=== PATIENT | male | born 1985 | race Caucasian/White ===

== ENCOUNTER 2018-02-26 02:52 | Emergency (ER) | payer OTHER ==
[~2018-02-26] VITALS: Ht 170.2 cm; Wt 106.6 kg
[~2018-02-26 02:52] MED LIST: AMOXICILLIN500 M2 PO; HYDROCHLOROTHIA50 MG PO; MOTRIN800 MG PO; TAMIFLU75 M1 PO
[2018-02-26 02:59] VITALS: BP 162/100
--- NOTE | 2018-02-26 03:30 | ED UPPER/LOWER EXTREMITY COMPL ---
History of Present Illness General Chief Complaint: Upper Extremity Problem Stated Complaint: WOKE UP WITH NUMBNESS AND PAIN IN RIGHT ARM Source: patient Exam Limitations: no limitations Vital Signs & Intake/Output Vital Signs & Intake/Output Vital Signs Date Time Temp Pulse Resp B/P B/P Pulse O2 O2 Flow FiO2 Mean Ox Delivery Rate 02/26 0259 96.5 62 16 162/100 98 Room Air Allergies Coded Allergies: NO KNOWN ALLERGIES (02/28/11) Reconcile Medications No Known Home Medications Triage Note: 32YO MALE TO TRIAGE W/CO AWAKING TONITE W/PAIN PRESENT FROM R SIDE OF NECK TRAVELING DOWN R ARM. ALSO CO SOME NUMBNESS OF FINGERS. TOOK MOTRIN 2H AGO Triage Nurses Notes Reviewed? yes HPI: Patient presents for evaluation of severe pain numbness and tingling of the right upper extremity that began our to arrival. Patient states he was well when he fell asleep while watching a movie on the couch at home. He feels he may have fallen asleep on his arm. He states he is now having constant pain from the right side of the neck through the shoulder and upper arm the gets worse with movement and with hanging his arm down. He denies any recent injury. He denies any prior episodes. Past History Travel History Traveled to [place] past 21 day No Medical History Any Pertinent Medical History? 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 No Review of Systems Review of Systems Constitutional: Reports: no symptoms. EENTM: Reports: no symptoms. Respiratory: Reports: no symptoms. Cardiovascular: Reports: no symptoms. Gastrointestinal/Abdominal: Reports: no symptoms. Genitourinary: Reports: no symptoms. Musculoskeletal: Reports: see HPI. Skin: Reports: no symptoms. Neurological/Psychological: Reports: no symptoms. Hematologic/Endocrine: Reports: no symptoms. Immunological: Reports: no symptoms. All Other Systems: Reviewed and Negative Physical Exam Physical Exam General Appearance: SEE BELOW Comments: Gen.: Well-nourished, well-developed, no acute respiratory distress. Head: Normocephalic, atraumatic. Eyes: Normal inspection bilaterally Ears: Normal inspection bilaterally Nose: Normal inspection Throat/mouth : Moist mucosa Neck: Supple, full range of motion, no goiter Heart: Regular rate and rhythm Lungs: Quiet respirations Back: Normal range of motion Extremities: Right upper extremity is neurovascularly intact with normal deep tendon reflexes, sensation strength and distal pulses. No traumatic lesions noted. Neurologic: Cranial nerves grossly intact, speech is clear Skin: warm and dry Psychiatric: Calm, cooperative, no apparent delusions or hallucinations Progress Differential Diagnosis: arterial insufficiency, dislocation, fracture, sprain, NEURAPRAXIA Plan of Care: Orders Procedure Date/time Status Durable Medical Equipment 02/26 0333 Active Departure Departure Disposition: HOME OR SELF CARE Condition: Stable Clinical Impression Primary Impression: Neuropraxia of right upper extremity Qualifiers: Encounter type: initial encounter Qualified Code: S44.91XA - Injury of unspecified nerve at shoulder and upper arm level, right arm, initial encounter Secondary Impressions: Neck muscle strain Qualifiers: Encounter type: initial encounter Qualified Code: S16.1XXA - Strain of muscle, fascia and tendon at neck level, initial encounter Referrals: Lucero Gamboa DO (PCP/Family) Additional Instructions: Ketorolac as prescribed for pain. Activity as tolerated. Arm sling if beneficial. Follow-up with Dr. Peck (neurologist) or your primary care physician for reevaluation over the next 48-72 hours. Return immediately if any concerns or sudden worsening. Thank you for choosing the [facility] Emergency Department for your care. It was a pleasure to serve you today. Orlando Grimes M.D. [facility] Departure Forms: Customer Survey General Discharge Information Prescriptions: Current Visit Scripts Ketorolac Tromethamine 1 TAB PO Q6P PRN ARM PAIN #16 TAB pATIENT RECEIVED im KETOROLAC IN THE EMERGENCY DEPARTMENT
[2018-02-26] MEDS ORDERED: KETOROLAC TROME10 M1 PO (04:14)
[2018-02-26] MEDS ORDERED: NORCO 5-325 TA1 EACH PO (11:07)
[2018-02-26] MEDS ORDERED: CYCLOBENZAPRINE10 M1 PO (11:07)
[2018-02-26] MEDS ORDERED: MEDROL4 M2 PO (11:07)
== END 2018-02-26 04:27 ==
LOC: ERH 02:52
DX: S44.91XA Injury of unspecified nerve at shoulder and upper arm level, right arm, initial encounter (principal); S16.1XXA Strain of muscle, fascia and tendon at neck level, initial encounter; X58.XXXA Exposure to other specified factors, initial encounter; Y93.84 Activity, sleeping
CPT/HCPCS: 96372; J1885

== ENCOUNTER 2018-02-26 10:27 | Emergency (ER) | payer OTHER ==
[~2018-02-26] VITALS: Ht 170.2 cm; Wt 106.6 kg
[~2018-02-26 10:27] MED LIST changes: +KETOROLAC TROME10 M1 PO
[2018-02-26 10:32] VITALS: BP 160/110
[2018-02-26] MEDS ORDERED: CYCLOBENZAPRINE10 M1 PO (11:07)
[2018-02-26] MEDS ORDERED: MEDROL4 M2 PO (11:07)
[2018-02-26] MEDS ORDERED: NORCO 5-325 TA1 EACH PO (11:07)
--- NOTE | 2018-02-26 11:07 | ED GENERAL ADULT ---
History of Present Illness General Chief Complaint: Upper Extremity Problem Stated Complaint: SEEN LAST NIGHT FOR SHOUDER PAIN NO BETTER Source: patient Exam Limitations: no limitations Vital Signs & Intake/Output Vital Signs & Intake/Output Vital Signs Date Time Temp Pulse Resp B/P B/P Pulse O2 O2 Flow FiO2 Mean Ox Delivery Rate 02/26 1106 98 Room Air 02/26 1032 98.4 81 18 160/110 98 Room Air Allergies Coded Allergies: NO KNOWN ALLERGIES (02/28/11) Reconcile Medications Cyclobenzaprine HCl 10 MG TABLET 1 TAB PO TID PRN PAIN Hydrocodone/Acetaminophen (Mcallister 5-325 Tablet) 5 MG-325 MG TABLET 1-2 TAB PO Q4-6 PRN PRN PAIN Ketorolac Tromethamine 10 MG TABLET 1 TAB PO Q6P PRN ARM PAIN pATIENT RECEIVED im KETOROLAC IN THE EMERGENCY DEPARTMENT Methylprednisolone. (Medrol) 4 MG TAB.DS.PK 1 DP PO AD CERVICAL RADICULAR PAIN 6 on day 1 then reduce by one tablet daily until gone Triage Note: 32 YO MALE TO TRIAGE FOR EVAL OF R SHOULDER/ARM PAIN AND TINGLING. REPORTS WAS HERE LAST NIGHT FOR SAME AND GIVE A SHOT (PT UNSURE OF WHAT) AND SENT HOME WTH PO TORADOL. PT STATES PAIN IS NO BETTER. PAIN IS RELIVED WHEN ARM IS LIFTED OVER HIS HEAD. PT DENIES ANY INJURY. Triage Nurses Notes Reviewed? yes Onset: Abrupt Duration: day(s): (2), constant, continues in ED, getting worse Timing: single episode today Injury Environment: home Severity: moderate, severe Severity Numbers: 9 No Modifying Factors: none HPI: 32-year-old male with no past medical history PRESENTS evaluation of right shoulder pain. Patient states symptoms started 2 days ago when he woke up and the pain has been persistent since. There is no known trauma or triggering event. He never had this before. The pain is located in the right side of his neck radiates into the right shoulder and then down his arm. He does report some numbness and tingling in his fingertips. He denies elbow pain. No fever no swelling. He was seen in the emergency department last night and was given a prescription for ibuprofen but this is not helping. He feels like his pain is continuing to get worse is holding the arm over his head. (Jayme Cunningham) Past History Travel History Traveled to [place] past 21 day No Medical History Any Pertinent Medical History? 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 No (Jayme Cunningham) Review of Systems Review of Systems Constitutional: Reports: no symptoms. EENTM: Reports: no symptoms. Respiratory: Reports: no symptoms. Cardiovascular: Reports: no symptoms. GI: Reports: no symptoms. Genitourinary: Reports: no symptoms. Musculoskeletal: Reports: see HPI, joint pain, muscle pain, muscle stiffness, neck pain. Skin: Reports: no symptoms. Neurological/Psychological: Reports: no symptoms. Hematologic/Endocrine: Reports: no symptoms. Immunologic/Allergic: Reports: no symptoms. All Other Systems: Reviewed and Negative (Jayme Cunningham) Physical Exam Physical Exam General Appearance: well developed/nourished, no apparent distress, alert, awake Head: atraumatic, normal appearance Eyes: Bilateral: normal appearance, PERRL, EOMI. Ears, Nose, Throat: hearing grossly normal Neck: normal inspection, supple, full range of motion, RIGHT SIDED CERVICAL PARASPINAL MUSCLES ARE TENDER TO PALPATION. nO MIDLINE TENDERNESS OR STEP-OFFS OR DEFORMITIES NO BRUISING SWELLING OR ABRASIONS Respiratory: normal breath sounds, chest non-tender, no respiratory distress, lungs clear Cardiovascular: regular rate/rhythm, normal peripheral pulses Peripheral Pulses: 2+ brachial (R), 2+ brachial (L), 2+ radial (R), 2+ radial (L) Gastrointestinal: soft, non-tender Back: normal inspection, normal range of motion, no vertebral tenderness Extremities: normal inspection, normal range of motion, no edema, FULL RANGE OF MOTION OF THE RIGHT SHOULDER IS INTACT BUT THERE IS PAIN WITH ABDUCTION. nO BRUISING SWELLING OR ABRASIONS. rANGE OF MOTION OF THE RIGHT ELBOW AND RIGHT WRIST INTACT. nO B[place] TENDERNESS OF THE CLAVICLE ACROMIOCLAVICULAR JOINT OR SCAPULA. nEUROVASCULAR SUPPLY IS INTACT Neurologic/Psych: no motor/sensory deficits, awake, alert, oriented x 3, normal gait, normal mood/affect Skin: intact, normal color, warm/dry Core Measures ACS in differential dx? No CVA/TIA Diagnosis: No Sepsis Present: No Sepsis Focused Exam Completed? No (Jayme Cunningham) Progress Differential Diagnoses I considered the following diagnoses in my evaluation of the patient: [Cervical radiculopathy, rotator cuff tear, muscle strain, cubital tunnel syndrome, carpal tunnel syndrome, brachial plexus injury] Plan of Care: Patient is here for reevaluation of right shoulder pain. There is no trauma or triggering event. There is no bony point tenderness to suggest fracture. No signs of infection no bruising swelling or abrasions noted erythema. Neurovascular supply is intact. Patient was seen last night given ibuprofen but is not helping. He'll be given a prescription for Medrol Dosepak Flexeril and Mcallister. Advised him to rest and apply ice. He was referred to neurology at the previous visit. Follow-up with neurology/PCP. Advised him he may need an MRI. Patient agrees the plan Initial ED EKG: none (Jayme Cunningham) Departure Departure Disposition: HOME OR SELF CARE Condition: Stable Clinical Impression Primary Impression: Cervical radicular pain Referrals: Lucero Gamboa DO (PCP/Family) Additional Instructions: REST AVOID EXCESSIVE PHYSICAL ACTIVITY. HEAT/ICE. MEDROL DOSE PACK DIRETCED. CONTINUE KETORLAC. CYCLOBENZAPRINE IS A MUSCLE RELAXER THAT CAN BE SUED EVERY 8 HOURS NEEDED. NOROC FOR SEVERE PAIN ONLY. MAKE A FOLLOW UP WITH PROVIDED NEUROLOGY SPECIALIST DARRIUS. RETURN WITH ANY CONCERNS. Departure Forms: Customer Survey General Discharge Information Prescriptions: Current Visit Scripts Methylprednisolone. (Medrol) 1 DP PO AD #1 DP 6 on day 1 then reduce by one tablet daily until gone Cyclobenzaprine HCl 1 TAB PO TID PRN PAIN #30 TAB Hydrocodone/Acetaminophen (Mcallister 5-325 Tablet) 1-2 TAB PO Q4-6 PRN PRN PAIN #10 TAB (Jayme Cunningham) PA/CIRCUITS ENGINEER Co-Sign Statement Statement: ED Attending supervision documentation- [] I saw and evaluated the patient. I have also reviewed all the pertinent lab results and diagnostic results. I agree with the findings and the plan of care as documented in the PA's/CIRCUITS ENGINEER's documentation. [x] I have reviewed the ED Record and agree with the PA's/CIRCUITS ENGINEER's documentation. [] Additions or exceptions (if any) to the PAs/CIRCUITS ENGINEER's note and plan are summarized below: [] (Kurtis SHAW,Gian) Critical Care Note Critical Care Note Critical Care Time: non-applicable (Elver SAGASTUME,Jayme)
== END 2018-02-26 11:10 ==
LOC: ERH 10:27
DX: M54.12 Radiculopathy, cervical region (principal)